=== PATIENT | male | born 1980 | race Caucasian/White ===

== ENCOUNTER 2025-04-08 07:17 | Outpatient (REF) | payer OTHER, SELFPAY ==
--- OUTSIDE RECORDS SUMMARY | 2025-04-08 08:31 | XMS_ITS | Encounter Summary ---
Author Organization [facility] Prior to 02/16/[address] [place] [address] Care Team Providers Care Crm Administrator Name Role Phone Efren Mcwilliams MD Primary Care Provider [phone] Reason for Visit * Reason Onset Date Comments Orders Call 10/27/2022 tdap Encounter Details Date Type Department Care Team Description 10/27/2022 Telephone Adult Medicine - [place] [address] [place], [place] [id number] Efren Mcwilliams MD [address] [place] [address] Orders Call (tdap) Social History Tobacco Use Types Packs/Day Years Used Date Smoking Tobacco: Former Cigarettes 6 Smokeless Tobacco: Never Alcohol Use Standard Drinks/Week Comments Yes 0 (1 standard drink = 0.6 oz pur e alcohol) occ- 1-2x/wk Sex Assigned at Date Recorded Not on file Job Start Date Occupation Industry Not on file Not on file Not on file COVID-19 Exposure Response Date Recorded In the last 10 days, have sveta u been in contact with someone who was confirmed or suspected to have Coronavirus/COVID-19? No / Unsure 10/27/2022 3:04 PM EDT documented as of this encounter Miscellaneous Notes * Telephone Encounter - Faye Joe - 10/27/2022 3:46 PM EDT Patient calling to request labs be ordered: What lab work is patient requesting? tdap Does patient have an upcoming appointment, if yes when and WITH WHO? no Patients PCP is: Efren Mcwilliams documented in this encounter Plan of Treatment Not on file documented as of this encounter Visit Diagnoses Not on filedocumented in this encounter Care Teams Crm Administrator Relationship Specialty Start Date End Date Efren Mcwilliams MD [address] [place] [address] PCP - General Internal Medicine 12/28/20 documented as of this encounter
--- OUTSIDE RECORDS SUMMARY | 2025-04-08 08:31 | XMS_ITS | Encounter Summary ---
Author Organization [facility] Prior to 02/16/[address] [place] [address] Care Team Providers Care Letter Of Credit Document Examiner Name Role Phone Prasanna Forte MD Primary Care Provider Unava Efren Lopez MD Primary Care Provider [phone] Encounter Details Date Type Department Care Team Description 11/14/2018 Heel Scorer Report Medical Records [address] [place] [address] Social History Tobacco Use Types Packs/Day Years Used Date Smoking Tobacco: Former Smokeless Tobacco: Never Sex Assigned at Date Recorded Not on file Job Start Date Occupation Industry Not on file Not on file Not on file documented as of this encounter Plan of Treatment Not on file documented as of this encounter Visit Diagnoses Not on filedocumented in this encounter Care Teams Letter Of Credit Document Examiner Relationship Specialty Start Date End Date Prasanna Forte MD PCP - General Internal Medicine 11/07/18 12/27/20 Efren Mcwilliams MD [address] [place] [address] PCP - General Internal Medicine 12/28/20 documented as of this encounter
--- OUTSIDE RECORDS SUMMARY | 2025-04-08 08:31 | XMS_ITS | Encounter Summary ---
Author Organization [facility] Prior to 02/16/[address] [place] [address] Care Team Providers Care Ophthalmologist Retina Specialist Name Role Phone Efren Mcwilliams MD Primary Care Provider [phone] Encounter Details Date Type Department Care Team Description 04/28/2023 Docketing Specialist Report Medical Records [address] [place] [address] Arielle Mccloud MD Social History Tobacco Use Types Packs/Day Years [...] on filedocumented in this encounter Care Teams Ophthalmologist Retina Specialist Relationship Specialty Start Date End Date Efren Mcwilliams MD [address] [place] [address] PCP - General Internal Medicine 12/28/20 documented as of this encounter
--- OUTSIDE RECORDS SUMMARY | 2025-04-08 08:31 | XMS_ITS | Encounter Summary ---
Author Organization [facility] Prior to 02/16/[address] [place] [address] Care Team Providers Care Senior Energy Market Coordinator Name Role Phone Efren Mcwilliams MD Primary Care Provider [phone] Encounter Details Date Type Department Care Team Description 05/12/2021 Kitchen And Counter Worker Report Medical Records [address] [place] [address] Social History Tobacco Use Types Packs/Day Years [...] on filedocumented in this encounter Care Teams Senior Energy Market Coordinator Relationship Specialty Start Date End Date Efren Mcwilliams MD [address] [place], [place] [phone] PCP - General Internal Medicine 12/28/20 documented as of this encounter
--- OUTSIDE RECORDS SUMMARY | 2025-04-08 08:31 | XMS_ITS | Encounter Summary ---
Author Organization [facility] Prior to 02/16/[address] [place] [address] Care Team Providers Care Senior Energy Trader Name Role Phone Prasanna Forte MD Primary Care Provider Unava Efren Lopez MD Primary Care Provider [phone] Encounter Details Date Type Department Care Team Description 11/08/2018 Release of Information Medical Records [address] [place] [address] Abstract, Provider Social History Tobacco Use Types Packs/Day Years [...] in this encounter Care Teams Senior Energy Trader Relationship Specialty Start Date End Date Prasanna Forte MD PCP - General Internal Medicine 11/07/18 12/27/20 Efren Mcwilliams MD [address] [place] [address] PCP - General Internal Medicine 12/28/20 documented as of this encounter
--- OUTSIDE RECORDS SUMMARY | 2025-04-08 08:31 | XMS_ITS | Encounter Summary ---
Author Organization [facility] Prior to 02/16/[address] [place] [address] Care Team Providers Care Entry Processor Name Role Phone Efren Mcwilliams MD Primary Care Provider [phone] Reason for Referral * Radiology Services (Routine) - Closed Specialty Diagnoses / Procedures Referred By Contac t Referred To Contact Radiology Diagnoses Contusion of right knee, initial encounter Procedures MRI OF LEG JOINT / LOWER EXTREMITY JOINT NO CONTRAST Ronny Saha PA-C [address] [place] [address] Mri/[address] [address] Referral ID Status Reason Start Date Expiration Date Visits Re quested Visits Authorized [id number] Closed 04/02/2021 09/29/2021 1 1 Encounter Details Date Type Department Care Team Description 01/21/2021 Telephone [facility] [address] [place] [address] [phone] Ronny Saha PA-C [address] [place] [address] [phone] Social History Tobacco Use Types Packs/Day Years [...] Exposure Response Date Recorded In the last month, have you been in contact with someone who was confirmed or suspected to have Coronavirus / COVID-19? No / Unsure 01/07/2021 8:15 AM EDT documented as of this encounter Plan of Treatment Not on file documented as of this encounter Results * MRI OF LEG JOINT / LOWER EXTREMITY JOINT NO CONTRAST (04/06/2021 10:13 AM EST) 04/07/2021 10:0 0 AM EST Impressions [facility] OTHER EXTERNAL - 04/07/2021 7:14 PM EST IMPRESSION: Probable tiny tear along the free edge of the medial meniscal body. POS - [id number] Narrative [facility] OTHER EXTERNAL - 04/07/2021 7:14 PM EST EXAM: Right knee MRI HISTORY: Right knee pain. Right knee injury December 2020. COMPARISON: None CORRELATION: Radiography 11/07/2018 TECHNIQUE: Exam performed on a 1.5 Merline high-field MRI scanner. Multiplanar imaging performed without contrast. FINDINGS: Exam mildly limited by varying degrees of motion artifact. Cruciate and collateral ligaments and the extensor mechanism are intact without abnormal signal. No significant joint effusion. No popliteal cyst. Tiny area of blunting and subtle increased signal along the free edge of the medial meniscal body suggestive of a tiny radial type tear. No evidence of a lateral meniscal tear. No cartilage defects. No fracture or definite bone contusion.. No suspicious bone lesion. Procedure Note Holli De La Rosa MD - 04/07/2021 EXAM: Right knee MRI HISTORY: Right knee pain. Right knee injury December 2020. COMPARISON: None CORRELATION: Radiography 11/07/2018 TECHNIQUE: Exam performed on a 1.5 Merline high-field MRI scanner.Multiplanar imaging performed without contrast. FINDINGS: Exam mildly limited by varying degrees of motion artifact. Cruciate and collateral ligaments and the extensor mechanism are intactwithout abnormal signal. No significant joint effusion. No popliteal cyst. Tiny area of blunting and subtle increased signal along the free edge ofthe medial meniscal body suggestive of a tiny radial type tear. No evidence of a lateralmeniscal tear. No cartilage defects. No fracture or definite bone contusion.. No suspicious bone lesion. IMPRESSION IMPRESSION: Probable tiny tear along the free edge of the medial meniscal body. POS - [id number] Ronny Saha PA-C MRI [facility] OTHER EXTERNAL documented in this encounter Visit Diagnoses Diagnosis Contusion of right knee, initial encounter- Primary Contusion of right knee, initial encounter documented in this encounter Care Teams Entry Processor Relationship Specialty Start Date End Date Efren Mcwilliams MD [address] [place] [address] PCP - General Internal Medicine 12/28/20 documented as of this encounter
--- OUTSIDE RECORDS SUMMARY | 2025-04-08 08:31 | XMS_ITS | Clinical Summary ---
Author Organization [facility] Prior to 02/16/[address] [place] [address] Care Team Providers Care Manager Commercial Sales Name Role Phone Efren Mcwilliams MD Primary Care Provider [phone] Allergies No known active allergies Medications Medication Sig Dispensed Refills Start Date End Date Status ALBUTEROL SULFATE 108 (90 Base) MCG/ACT Aero Soln INHALE 2 PUFFS EVERY 4 TO 6 HOURS NEEDED SHORTNESS OF BREATH OR WHEEZING) 0 01/26/2024 Active Active Problems Problem Noted Date Abnormal ultrasound of liver 11/08/2022 Urinary retention 11/08/2022 Elevated blood sugar 10/28/2022 Overview: Mild 11/06 Urinary frequency 10/27/2022 Anxiety 11/26/2018 Immunizations Name Administration Dates Next Due COVID-19 (VIRY) PT REPORTED 10/09 Tdap 11/01/2012 Family History Medical History Relation Name Comments Diabetes Brother 1 Type 2 Diabetes Brother 2 #2 Type 1 Diabetes Father Type 2 Hypertension Mother Leukemia Paternal Grandmother Relation Name Status Comments Brother 1 Brother 2 #2 Alive Father Mother Paternal Grandmother Social History Tobacco Use Types Packs/Day Years Used Date Smoking Tobacco: Former Cigarettes 6 Smokeless Tobacco: Never Tobacco Cessation:Counseling Given: Not Answered Alcohol Use Standard Drinks/Week Comments Yes 0 (1 standard drink = 0.6 oz pur e alcohol) occ- 1-2x/wk Sex Assigned at Date Recorded Not on file Job Start Date Occupation Industry Not on file Not on file Not on file Last Filed Vital Signs Vital Sign Reading Time Taken Comments Blood Pressure 126/62 02/09/2024 1:59 PM EDT Pulse 49 02/09/2024 1:59 PM EDT Temperature 36.5 C (97.7 F) 02/09/2024 1:59 PM EDT Respiratory Rate 16 10/27/2022 3:10 PM EDT Oxygen Saturation 98% 12/29/2020 9:21 AM EDT Inhaled Oxygen Concentration - - Weight 67.4 kg (148 lb 9.6 oz) 02/09/2024 1:59 P M EDT Height 175.3 cm (5' 9 ) 02/09/2024 1:59 PM EDT Body Mass Index 21.94 02/09/2024 1:59 PM EDT Plan of Treatment Health Maintenance Due Date Last Done Comments DTAP/TDAP/TD (2 - Td or Tdap) 11/01/2022 11/01/2012 BASELINE HEALTH EXAM 40-64 10/27/2024 10/27/2022, Covid-19 Vaccine ( season) 2024 INFLUENZA (#1) 2024 CHOLESTEROL SCREENING 10/28/2027 10/27/2022 PNEUMOCOCCAL VACCINE FOR HIG H RISK PATIENTS (#1) 2046 Care Teams Manager Commercial Sales Relationship Specialty Start Date End Date Efren Mcwilliams MD [address] [place], [place] [phone] PCP - General Internal Medicine 12/28/20
--- OUTSIDE RECORDS SUMMARY | 2025-04-08 08:31 | XMS_ITS | Encounter Summary ---
Author Organization [facility] Prior to 02/16/[address] [place] [address] Care Team Providers Care Supplemental Nurse Name Role Phone Prasanna Bales MD Primary Care Provider Efren Wang MD Primary Care Provider [phone] Reason for Referral * EXTERNAL (Urgent) - Authorized/Booked Specialty Diagnoses / Procedures Referred By Kelvin flores Referred To Contact Physical Therapy Procedures REFERRAL TO PHYSICAL THERAPY Prasanna Bales MD [address] [place] [address] External Phys Thrpy Referral ID Status Reason Start Date Expiration Date V isits Requested Visits Authorized SEE NOTE Authorized/B ooked 11/08/2018 02/08/2019 1 1 Reason for Visit * Reason Onset Date Comments Editor Newspaper Feedback 11/08/2018 [facility] Physical The rapy Facility [facility] [phone] Encounter Details Date Type Department Care Team Description 11/08/2018 Telephone Medicine/Pediatrics - [address] [phone] Prasanna Bales MD Editor Newspaper Feedback ([facility] Physical Therapy Facility NP [phone]) Social History Tobacco Use Types Packs/Day Years Used Date Smoking Tobacco: Former Smokeless Tobacco: Never Sex Assigned at Date Recorded Not on file Job Start Date Occupation Industry Not on file Not on file Not on file documented as of this encounter Miscellaneous Notes * Telephone Encounter - Tawanda Steele PA-C - 11/08/2018 12:51 PM EDT All set * Telephone Encounter - Prasanna Bales MD - 11/08/2018 12:13 PM EDT Forwarding to ordering provider who saw patient in clinic * Telephone Encounter - Randi Lopez - 11/08/2018 12:09 PM EDT Please review this patients new referral request. The referral has been pended. Please complete thefollowing: If approved> sign order If denied>please give instructions and route to your practice nursing pool. Practice nurse should inform referrals and the patient if denied. Subscriber: JESSICA CUELLO Submitter : PRASANNA BALES Submitter Type: Provider : 1980 Referral (#[id number]) Specialty Care Review Type: Initial Certification Status : Certified in total Place Of Service : Office Visits : 16 Issue : 11/08/2018 Expiration : 11/09/2019 Service Providers Provider Name ID Provider Type AT PHYSICAL THERAPY [facility] NPI : [id number] Service Provider Service Request Review Status Procedure Details - Professional Service [facility] Code : 41308 Description : UNLISTED EVALUATION AND MANAGEMENT SERVICE Status: Certified in total Review Id # : [id number] * Telephone Encounter - Marilyn Pro - 11/08/2018 11:24 AM EDT What insurance does the patient have today? Payor: [employer] / Plan: PPO $20 [place] [id number] / Product Type: POS [id number] Effective 01/15/09: BC[employer] will not retro referral requests over 90 days. If request is for this please instruct patient to call the 800# on their insurance card to appeal. Do not submit a request. Referrals cannot be processed if the insurance is not accurate. If the insurance listed above in red is NO BILLING INFORMATION FOUND FOR THIS ENCOUTNER The patients correct insurance must be obtained and registered in [facility] or their referral can not be processed. Is this a retro request? NO. If yes for what date of service do you need the retro referral? N/A Who is calling to request this referral? patient If the caller is not the patient, what is their name? N/A Ask the patient WHO referred them to this specialty: Patient self referred FIRST and LAST NAME of SPECIALIST PATIENT is seeing: [facility] Physical Therapy Facility [facility] [phone] What specialty is this? Physical Therapy DIAGNOSIS Patient is being seen for (Not a body part or a procedure): knee pain Have you seen this SPECIALIST for this PROBLEM/DX before?NO If YES, when: Have you checked REVIEW or the APPT DESK to see if this referral has already been done or has visits left? YES Is this visit:Initial Visit Address of Specialist:[address] [place] [address] Phone # of Specialist:[phone] Fax #: (if applicable):[phone] Does patient have an appointment scheduled?: YES Date of appointment- (including a retro-request): 11/14/18 Is this appointment related to: Not MVA, WC or Surgery related documented in this encounter Plan of Treatment Not on file documented as of this encounter Visit Diagnoses Not on filedocumented in this encounter Care Teams Supplemental Nurse Relationship Specialty Start Date End Date Prasanna Bales MD PCP - General Internal Medicine 11/07/18 12/27/20 Efren Mcwilliams MD [address] [place] [address] PCP - General Internal Medicine 12/28/20 documented as of this encounter
[2025-04-08 10:09] LABS: Folate 10.2 ng/mL (> or = 4.0); Vitamin B12 465 pg/mL (200-900)
== END 2025-04-08 07:18 ==
LOC: HO.LAB 07:17
PROVIDERS: PCP Pediatrics; Visit Provider Nurse Practitioner
DX: R20.2 Paresthesia of skin (principal); R26.89 Other abnormalities of gait and mobility; R35.0 Frequency of micturition; K59.00 Constipation, unspecified; Z13.1 Encounter for screening for diabetes mellitus
CPT/HCPCS: 36415; 82525; 82607; 82746; 83036; 83921; 84443; 86235

== ENCOUNTER 2025-04-08 07:17 | Outpatient (AMB) | payer OTHER, SELFPAY ==
--- OUTSIDE RECORDS SUMMARY | 2025-04-08 07:22 | XMS_ITS | Clinical Summary ---
Author Organization [facility] Address [address] [place] [phone] Phone Care Team Providers Care Power Equipment Technology Instructor Name Role Phone Mahogany Mcwilliams MD Primary Care Provider [phone] Allergies No known active allergies Medications No known medications Encounters Date Type Department Care Team Description 01/20/2025 5:00 PM EDT Office Visit [facility] [address] [place] [address] Arielle Mccloud MD Jarjoura, Shoaib Escalante, PT Chronic pain of right knee (Primary Dx) from Last 3 Months Social History Tobacco Use Types Packs/Day Years Used Date Smoking Tobacco: Former Education Answer Date Recorded Are you interested in more education? Not on oni e 08/13/2022 Are you concerned about learning? Not on file 08/13/2022 No 08/13/2022 No 08/13/2022 Digital Access Answer Date Recorded No 09/11/2022 No 09/11/2022 Reliable internet access at home? Not on file 09/11/2022 Device with a working camera? Not on file Sex and Gender Information Value Date Recorded Sex Assigned at Not on file Legal Sex Male 11:23 AM EST Gender Identity Not on file Sexual Orientation Not on file Last Filed Vital Signs Vital Sign Reading Time Taken Comments Blood Pressure - - Pulse - - Temperature - - Respiratory Rate - - Oxygen Saturation - - Inhaled Oxygen Concentration - - Weight 68 kg (150 lb) 07/30/2021 1:23 PM EDT Height 175.3 cm (5' 9 ) 07/30/2021 1:23 PM EDT Body Mass Index 22.15 07/30/2021 1:23 PM EDT Plan of Treatment Health Maintenance Due Date Last Done Comments DEPRESSION SCREENING 1993 SMOKING Hx and SMOKELESS TOBACCO SCREENING 1994 HEPATITIS C SCREENING 06/21/1999 HIV ONE-TIME SCREENING (18-6 5 YEARS) 06/21/1999 Adult Td,Tdap Booster 11/01/2022 11/01/2012 INFLUENZA VACCINE (#1) 2024 7, 07/29/2015 COVID-19 VACCINE (3 - 2024-2 6 season) 2024 04/16/2021, 10/09/2020 LIPID PANEL 10/28/2027 10/27/2022 HEPATITIS A VACCINES Aged Out No long er eligible based on patient's age to complete this topic HIB VACCINES Aged Out No longer eligi ble based on patient's age to complete this topic MENINGOCOCCAL VACCINES (ACWY) Aged Out No longer eligible based on patient's age to complete this topic MENINGOCOCCAL VACCINES (B) Aged Out N o longer eligible based on patient's age to complete this topic PNEUMOCOCCAL VACCINES (0-49 years) Aged Out No longer eligible b ased on patient's age to complete this topic Medical Devices Not [place] [id number] [facility] Care Teams Power Equipment Technology Instructor Relationship Specialty Start Date End Date Mahogany Mcwilliams MD [address] [place] [phone] PCP - General Internal Medicine 04/28/23 Additional Source Comments The information contained in this document represents components of the legal health record. It is not the complete legal health record.[facility]
--- OUTSIDE RECORDS SUMMARY | 2025-04-08 07:22 | XMS_ITS | Encounter Summary ---
Author Organization [facility] Address [address] [place] [address] Care Team Providers Care Conventions Assistant Name Role Phone Mahogany Mcwilliams MD Primary Care Provider [phone] Reason for Referral * Consultation (Routine) - Closed Specialty Diagnoses / Procedures Referred By Contac t Referred To Contact Rheumatology Diagnoses Elevated rheumatoid factor Rheumatoid arthritis involving multiple sites with positive rheumatoid factor (CMS/HCC V24, CMS/HCC V28) Becky Girard NP [address] [place], [place] Phone: tel: fax: [facility] - Rheumatology [address] [place] [address] Phone: tel: fax: Referral ID Status Reason Start Date Expiration Date V isits Requested Visits Authorized [id number] Closed Specialty Services Required 02/18/2025 02/18/2026 1 1 Encounter Details Date Type Department Care Team (Late st Contact Info) Description 02/18/2025 Results Follow-Up Adult Medicine - [place] [address] [place] [id number] Becky Girard NP [address] [place], [place] Social History Tobacco Use Types Packs/Day Years Used Date Smoking Tobacco: Former Cigarettes 0 Q uit: 2007 Smokeless Tobacco: Never Alcohol Use Standard Drinks/Week Comments Yes 0 (1 standard drink = 0.6 oz pur e alcohol) social Sex and Gender Information Value Date Recorded Sex Assigned at Not on file Legal Sex Male 10:25 AM EST Gender Identity Not on file Sexual Orientation Not on file documented as of this encounter Plan of Treatment Scheduled Referrals Name Type Priority Associated Diagnoses Order Schedule Ambulatory referral to Rheumatology Outpatient Referral Routine Elevated rheumatoid factor Rheumatoid arthritis involving multiple sites with positive rheumatoid factor ([facility] V24, [facility] V28) 1 Occurrences starting 02/18/2025 until 02/18/2026 documented as of this encounter Visit Diagnoses Diagnosis Elevated rheumatoid factor- Primary Other and unspecified nonspecific immunological findings Rheumatoid arthritis involving multiple sites with positive rheumatoid factor ([facility] V24, [facility] V28) documented in this encounter Care Teams Conventions Assistant Relationship Specialty Start Date End Date Mahogany Mcwilliams MD [address] [place] [phone] PCP - General Internal Medicine 12/28/20 documented as of this encounter
--- OUTSIDE RECORDS SUMMARY | 2025-04-08 07:22 | XMS_ITS | Clinical Summary ---
Author Organization [facility] [address] [facility] Address [address] [place] [address] Phone Care Team Providers Care Flux Tube Attendant Name Role Phone Mahogany cMwilliams MD Primary Care Provider [phone] Allergies No known active allergies Medications albuterol HFA (PROAIR HFA ; PROVENTIL HFA ; VENTOLIN HFA) 90 mcg/actuation inhaler if needed. 01/26/2024 Active Active Problems Problem Noted Date Diagnosed Date History of tobacco use 03/28/2024 Overview (03/28/2024): Only briefly in 20s Lung nodules 03/28/2024 Overview (03/28/2024): 04/09. Low risk. No follow up needed Abnormal ultrasound of liver 11/08/2022 Urinary retention 11/08/2022 Elevated blood sugar 10/28/2022 Overview (05/20/2024): Mild 11/06 Urinary frequency 10/27/2022 Anxiety 11/26/2018 Encounters Date Type Department Care Team Description 03/07/2025 1:30 PM EST Ancillary Procedure [facility] - [facility] [address] [facility] [address] [place] [phone] Chest pain, unspecified type 03/06/2025 11:00 AM EST Office Visit Adult Medicine [facility] [address] [place] [address] Mahogany Mcwilliams MD Constipation, unspecified constipation type (Primary Dx) 03/06/2025 Telephone Adult [facility] - [address] [phone] Mahogany Mcwilliams MD 02/21/2025 8:00 AM EST Ancillary Procedure [facility] - [address] [place] [phone] Chest pain, unspecified type 02/18/2025 Results Follow-Up Adult [facility] - [address] [address] Becky Girard NP 02/13/2025 3:40 PM EDT Lab Draw Station - [address] [address] Generalized joint pain 02/13/2025 3:00 PM EDT Office Visit Adult [address] [phone] Becky Girard PIPELINE TECHNICIAN Chest pain, unspecified type (Primary Dx); Generalized joint pain 02/04/2025 Telephone Adult [address] [address] Mahogany Mcwilliams MD from Last 3 Months Immunizations Immunization Administration Dates Next Due Tdap Tetanus diptheria acell ular pertussis (Boostrix; Adacel) 7yo and older 11/01/2012 Surgical History Surgery Date Site/Laterality Comments ABDOMINAL SURGERY PROCEDURE: HISTORICAL ABDOMINAL SURGERY; COMMENT: age 4, intussuception Medical History Medical History Date Comments Anxiety 11/26/2018 DX:Anxiety History of dizziness 11/26/2018 DX:History of dizziness Family History Medical History Relation Name Comments Diabetes Brother 1 Type 2 Diabetes Brother 2 #2 Type 1 Diabetes Father Type 2 Hypertension Mother Leukemia Paternal Grandmother Relation Name Status Comments Brother 1 Brother 2 #2 Alive Father Mother Paternal Grandmother Social History Tobacco Use Types Packs/Day Years Used Date Smoking Tobacco: Former Cigarettes 0 Q uit: 2006 Smokeless Tobacco: Never Tobacco Cessation:Counseling Given: Not Answered Alcohol Use Standard Drinks/Week Comments Yes 0 (1 standard drink = 0.6 oz pur e alcohol) social Sex and Gender Information Value Date Recorded Sex Assigned at Not on file Legal Sex Male 10:25 AM EST Gender Identity Not on file Sexual Orientation Not on file Last Filed Vital Signs Vital Sign Reading Time Taken Comments Blood Pressure 136/80 03/06/2025 11:01 AM EST Pulse 50 03/06/2025 11:01 AM EST Temperature 36.6 C (97.9 F) 03/06/2025 11:01 AM EST Respiratory Rate - - Oxygen Saturation - - Inhaled Oxygen Concentration - - Weight 65 kg (143 lb 3.2 oz) 03/06/2025 11:01 AM EST Height 175.3 cm (5' 9 ) 03/06/2025 11:01 AM EST Body Mass Index 21.15 03/06/2025 11:01 AM EST Plan of Treatment Health Maintenance Due Date Last Done Comments Hepatitis B Vaccines (1 of 3 - 19+ 3-dose series) 2000 HPV Vaccines (1 - 3-dose SCD M series) 2008 HIV Screening 03/27/2022 Hepatitis C Screening 03/27/2022 Social Influencers of Health Screening 03/27/2022 DTaP,Tdap,and Td Vaccines (2 - Td or Tdap) 11/01/2022 11/01/2012 Depression Screening 04/17/2024 COVID-19 Vaccine (3 - 2024-2 6 season) 2024 04/16/2021, 10/09/2020 Influenza Vaccine (#1) 2024 7, 07/29/2015 Cholesterol Screening (Lipid Panel) 10/28/2027 10/27/2022 RSV Immunization Adult Patients (1 - 1-dose 75+ series) 2056 HIB Vaccines Aged Out No longer eligi ble based on patient's age to complete this topic Hepatitis A Vaccines Aged Out No long er eligible based on patient's age to complete this topic IPV Vaccines Aged Out No longer eligi ble based on patient's age to complete this topic MMR Vaccines Aged Out No longer eligi ble based on patient's age to complete this topic Meningococcal ACWY Vaccine Aged Out N o longer eligible based on patient's age to complete this topic Meningococcal B Vaccine Aged Out No l onger eligible based on patient's age to complete this topic Pneumococcal Vaccine: Pediatrics (0 to 5 Years) and At-Risk Patients (6 to 49 Years) Aged Out No longer eligible b ased on patient's age to complete this topic RSV Immunization Patients Under 20 months Aged Out No longer eligible b ased on patient's age to complete this topic Varicella Vaccines Aged Out No longer eligible based on patient's age to complete this topic Procedures Procedure Name Priority Date/Time Associated Diagnosis Comments EXTERNAL ULTRASOUND REPORT 03/15/2025 STRESS ECHOCARDIOGRAM EXERCISE Routine 03/07/2025 2:07 PM EST Chest pain, unspecified type TRANSTHORACIC ECHOCARDIOGRAM (TTE) COMPLETE Routine 02/21/2025 8:24 AM EST Chest pain, unspecified type SEDIMENTATION RATE Routine 02/13/2025 3: 36 PM EDT Generalized joint pain ANN IFA WITH TITER AND PATTERN Routine 02/13/2025 3:36 PM EDT Generalized joint pain BORRELIA BURGDORFERI ANTIBODY Routine 02/13/2025 3:36 PM EDT Generalized joint pain URIC ACID Routine 02/13/2025 3:36 PM EDT Generalized joint pain RHEUMATOID FACTOR Routine 02/13/2025 3:3 6 PM EDT Generalized joint pain LIPID PANEL Routine 10/27/2022 from Last 3 Months or Most Recently Relevant to Health Maintenance Results * External Ultrasound Report (03/15/2025) Anatomical Region Laterality Modality Ultrasound us Provider [facility] IMG US PROCEDURES Final Result * STRESS ECHOCARDIOGRAM EXERCISE (03/07/2025 2:07 PM EST) Exercise/inject ion duration (min) 17 CV PACS STRESS Exercise/inject ion duration (sec) 39 CV PACS STRESS Peak SBP 166 mmHg CV PACS STRESS Peak DBP 90 mmHg CV PACS STRESS Peak HR 179 bpm CV PACS STRESS Baseline HR 59 bpm CV PACS STRESS Baseline SBP 122 mmHg CV PACS STRESS Baseline DBP 80 mmHg CV PACS STRESS Estimated workload 20.3 METS CV PACS STRESS Percent HR 101 % CV PACS STRESS Rate Pressure Product 29,714.0 mmHg*bpm CV PACS STRESS Target HR 150 bpm CV PACS STRESS Angina Index 0 CV PACS STRESS Max HR Percent 101 % CV PA CS STRESS ST Depression (mm) 0 mm CV PACS STRESS O2 sat rest 99 % CV PACS STRESS O2 sat peak 99 % CV PACS STRESS Anatomical Region Laterality Modality Ultrasound 03/07/2025 1:24 PM EST 03/07/2025 2:14 PM EST Narrative 03/10/2025 12:10 PM EST Resting echo showed normal biventricular size and systolic function. Normal left ventricular regional wall motion with an ejection fraction of 55 to 60%. Exercise stress test was performed. The patient exercised for 17 minutes and 39 seconds! He achieved 101% of max predicted heart rate and a 20.3 MET workload. Patient's exercise capacity is excellent! Patient reported no symptoms during the stress test. Normal blood pressure and heart rate response. There were no ischemic ECG changes or arrhythmias with stress. Post stress echocardiographic imaging showed normal augmentation of all regional wall segments. The left ventricular cavity did not dilate with stress. Normal exercise stress echocardiogram at a diagnostic heart rate and excellent workload without evidence of ischemia or infarction. Left Ventricle Left ventricle cavity size is normal. Wall thickness is normal. Systolic function is normal with an ejection fraction of 55-60%. There are no regional LV wall motion abnormalities. Study Details Overall the study quality was adequate. Stress Findings A Hank protocol stress test was performed. Total stress time was 17 min and 39 sec. The patient experienced no angina during the test. Reached 100% MPHR The patient's hemodynamic response was adequate for diagnosis. Blood pressure demonstrated a normal response. Heart rate demonstrated a normal response. The patient reported no symptoms during the stress test. ECG Mr. Cuello is a 44 year old male with past medical history of anxiety, past history of tobacco use and elevated blood sugar who presents for a stress echocardiogram to evaluate noncardiac chest pain. Baseline ECG: sinus bradycardia at 51bmp. There were no arrhythmias during stress. There is no ST segment changes during stress. There were no arrhythmias during recovery. The result of the stress ECG was negative for ischemia. Echo Post Stress Left ventricular cavity size decreased from baseline. Left ventricular systolic function improved from baseline. Normal wall motion, unchanged from baseline. Nuclear Measurements The study is negative and shows no echocardiographic evidence of ischemia. Procedure Note Len Bradshaw NP / Marjan Nunes MD - 03/10/2025 Resting echo showed normal biventricular size and systolic function.Normal left ventricular regional wall motion with an ejection fraction of55 to 60%. Exercise stress test was performed. The patient exercised for 17minutes and 39 seconds! He achieved 101% of max predicted heart rate calvin 20.3 MET workload. Patient's exercise capacity is excellent! Patientreported no symptoms during the stress test. Normal blood pressure andheart rate response. There were no ischemic ECG changes or arrhythmias with stress. Post stress echocardiographic imaging showed normal augmentation of allregional wall segments. The left ventricular cavity did not dilate withstress. Normal exercise stress echocardiogram at a diagnostic heart rate andexcellent workload without evidence of ischemia or infarction. us Becky Girard NP CV ECHO PROCEDURES Final Resul t * TRANSTHORACIC ECHOCARDIOGRAM (TTE) COMPLETE (02/21/2025 8:24 AM EST) Left Atrium Minor Bramwell 5.1 cm CV PACS Left Atrium Major Bramwell 5.9 cm CV PACS LA Area Sys (A2C) 19 cm2 CV PACS LA Area Sys (A4C) 26 cm2 CV PACS LA Volume (BP) 73 mL CV PACS RA Area 15.5 cm2 CV PACS RA 2D Volume 37 mL CV PACS Aortic Sinus Valsalva 3.0 cm CV PACS Ascending Aorta 3.1 cm CV PACS IVC Proximal 2.0 cm CV PACS IVC Proximal 1.9 cm CV PACS IVSD 0.8 0.6 - 1.0 cm CV PACS LVIDD 5.3 4.2 - 5.8 cm CV PACS LVIDS 3.1 2.5 - 4.0 cm CV PACS LVOT Diameter 2.3 cm CV PACS LVOT Mean Hi 0.7 m/s CV PACS LVOT Mean Grad 3 mmHg CV PACS LVOT Peak VTI 26.8 cm CV PACS LVOT Peak Hi 1.2 m/s CV PACS LVOT Peak Gradient 6 mmHg CV PACS LVPWD 0.8 0.6 - 1.0 cm CV PACS MV E' Tissue Velocity Lateral 20 cm/s CV PACS MV E' Tissue Velocity Septal 13 cm/s CV PACS LVOT Area 4.2 cm2 CV PACS LVOT Stroke Volume 111 mL CV PACS E Wave Deceleration Time 211 119 - 242 ms CV PACS MV Peak A Hi 0.33 m/s CV PACS MV Peak E Hi 0.85 m/s CV PACS PV Acceleration Time 180 ms CV PACS PV Acceleration Time 134 ms CV PACS PV Acceleration Time 157 ms CV PACS RV Diastolic Basal Dimension 3.5 2.5 - 4.1 cm CV PACS RV S' 14 cm/s CV PACS TAPSE 27 mm CV PACS TR Peak Velocity 2.00 m/s CV PACS TR Peak Gradient 16 mmHg CV PACS E/E' Ratio Septal 7 CV PACS E/E' Ratio Averaged 5 CV PACS Relative Wall Thickness ratio 0.30 CV PACS FS 42 % CV PACS LV Mass 2D 150 g CV PACS LVOT flow 291 mL/s CV PACS E/A Ratio 2.6 CV PACS E/E' Ratio Lateral 4 CV PACS BSA 1.79 m2 CV PACS LA Volume Index (BP) 41 mL/m2 CV PACS LVIDD Index 2.94 cm/m2 CV PACS LVIDS Index 1.72 cm/m2 CV PACS LV Mass Index 2D 83 50 - 102 g/m2 CV PACS LVOT Stroke Index 62 mL/m2 CV PACS RA 2D Volume Index 21 18 - 32 mL/m2 CV PACS Ascending Aorta Index 1.72 cm/m2 CV PACS Right Ventricular Peak Systolic Pressure 24 mmHg CV PACS Est. RA Pressure 8 mmHg CV PACS Anatomical Region Laterality Modality Ultrasound Narrative 02/24/2025 4:32 PM EST Left ventricle cavity size is normal. Left ventricular systolic function is in the normal range with an ejection fraction of 60-65%. Normal diastolic function. Normal wall thickness. No wall motion abnormalities. Normal global longitudinal strain at -26.8% Right ventricle cavity is normal. Right ventricular systolic function is normal. Mildly dilated left atrium. Mildly dilated inferior vena cava suggesting a mildly elevated CVP. Trace TR. Normal estimated peak PA systolic pressure. Trace MR. No other significant valvular abnormality. No prior echo for comparison. Left Ventricle Left ventricle cavity size is normal. Wall thickness is normal. Systolic function is normal with an ejection fraction of 60-65%. Global longitudinal strain is normal at -26.8% There are no regional LV wall motion abnormalities. There is no diastolic dysfunction. Right Ventricle Right ventricle cavity appears normal. Systolic function is normal. Left Atrium Left atrium cavity is moderately dilated. Right Atrium Right atrium cavity is normal. IVC/SVC Inferior vena cava structure is normal. RA pressures is estimated to be 8 mmHg (IVC diameter <21 mm and decreases <50% during inspiration). Mitral Valve The valve is myxomatous. There is mild annular calcification. There is trace regurgitation. There is no significant stenosis noted. Tricuspid Valve Tricuspid valve structure is normal. There is mild regurgitation with a central jet. There is no significant tricuspid valve stenosis. Aortic Valve The aortic valve is trileaflet. The leaflets are mildly thickened and exhibit normal excursion. There is no regurgitation or stenosis. Pulmonic Valve The pulmonic valve was not well visualized. No significant pulmonic valve regurgitation. No significant pulmonary valve stenosis noted. Ascending Aorta The aorta appears normal in size. Pericardium Pericardium appears normal. There is no pericardial effusion. Study Details Overall the study quality was adequate. us Becky Girard NP CV ECHO PROCEDURES Final Resul t * ANN IFA with titer and pattern (02/13/2025 3:36 PM EDT) ANN Negative Negative 02/17/2025 2:47 PM EST [facility] Comment:ANN performed by ind sherleyct immunofluorescence (IFA) using HEp-2 substrate. Blood Venous blood specimen / Unknown Venipuncture / Unknown 02/13/2025 3:36 PM EDT 02/13/2025 3:38 PM EDT us Becky Girard NP LAB BLOOD ORDERABLES Final Res ult [facility] [address] [place] [address], [place] [phone] * Borrelia burgdorferi antibody (02/13/2025 3:36 PM EDT) [facility] Lyme Ab Negative Negative LAB CHEMISTRY METHOD 02/14/2025 9:16 AM EDT [facility] Comment: No laboratory evidence of infection with B. burgdorferi (Lyme disease). Negative results may occur in patients recently infected (<=14 days) with B. burgdorferi. If recent infection is suspected, repeat testing on a new sample collected in 7- 14 days is recommended. Blood Venous blood specimen / Unknown Venipuncture / Unknown 02/13/2025 3:36 PM EDT 02/13/2025 3:38 PM EDT Becky Girard PIPELINE TECHNICIAN LAB BLOOD ORDERABLES Final Res ult Performing Organization Address [facility]/ZIP Co de Phone Number [facility] [address] [place] [address], [place] [phone] * Sedimentation rate (02/13/2025 3:36 PM EDT) [facility] Sed Rate 4 0 - 15 mm/hr LAB HEMETOLOGY METHOD 02/13/2025 5:52 PM EDT [facility] Blood Venous blood specimen / Unknown Venipuncture / Unknown 02/13/2025 3:36 PM EDT 02/13/2025 3:38 PM EDT [facility] PIPELINE TECHNIC[facility] LAB BLOOD ORDERABLES Final Res ult Performing Organization Address City/[facility]/ZIP Co de Phone Number [facility] [address] [place] [address], [place] [phone] * (ABNORMAL) Rheumatoid factor (02/13/2025 3:36 PM EDT) [facility] Rheumatoid Factor 23.0(H) <15.0 I Unit/mL LAB CHEMISTRY METHOD 02/13/2025 6:04 PM EDT [facility] Blood Venous blood specimen / Unknown Venipuncture / Unknown 02/13/2025 3:36 PM EDT 02/13/2025 3:38 PM EDT [facility] PIPELINE TECHNICIAN LAB BLOOD ORDERABLES Final Res ult Performing Organization Address City/[facility]/ZIP Co de Phone Number [facility] [address] [place] [address], [place] [phone] * (ABNORMAL) Uric acid (02/13/2025 3:36 PM EDT) Pathologist [facility] Uric Acid 3.6(L) 3.7 - 9.2 mg/dL LAB CHEMISTRY METHOD 02/13/2025 6:04 PM EDT [facility] Blood Venous blood specimen / Unknown Venipuncture / Unknown 02/13/2025 3:36 PM EDT 02/13/2025 3:38 PM EDT [facility] PIPELINE TECHNICIAN LAB BLOOD ORDERABLES Final Res ult Performing Organization Address [facility]/ZIP Co de Phone Number [facility] [address] [place] [address], [place] [phone] * Lipid panel (10/27/2022) LDL/HDL Ratio 3 0 - 4 Triglycerides 127 0 - 150 mg/dL Cholesterol 176 0 - 200 mg/dL HDL 58 >=40 mg/dL LDL Cholesterol 93 0 - 100 mg/dL Blood Venous blood specimen / Unknown Historical Provider LAB BLOOD ORDERABLES Cathie l Result from Last 3 Months or Most Recently Relevant to Health [place] [phone] [facility] Care Teams Flux Tube Attendant Relationship Specialty Start Date End Date Mahogany Mcwilliams MD [address] [place] [phone] PCP - General Internal Medicine 12/28/20
--- NOTE | 2025-04-08 07:28 | MHC.OFFVIS ---
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 According to the patient today, over the course of the last 7-8 years he has had intermittent symptoms including feelings o being off balance (as if he is on a boat). Over the last couple years he feels as though his bladder and bowel patterns have changed with bowel patterns slowing or lack of urge and urinary frequency, feeling of tingling on legs or toes, intermittent blurred vision, as well as a feeling of tightness around his chest as if a belt is wrapped around his chest. Over the last couple of months has had a pain in his throat that makes it uncomfortable to swallow. He has not had difficulty chewing or with speech. He notes 1 episode in 2019 that felt as an electrical shock in his body and chest pain. He was seen in the ER for this in the past but his workup was unrevealing. He has tried vestibular PT in the past for his symptoms of imbalance which was ineffective. In 2019 regular exercise had been helpful for the feelings of imbalance. Social/backround: Lives home with and 2 kids He works as a repairman for medical equipment Sleep: Reports about 7 hours of sleep per night. He generally feels rested in the morning. Tobacco: None Etoh: Socially but has stopped recently Substance use: None Prior workup: Labs: ANN negative, lyme negative. Rheumatoid factor elevated. REPLACED BY [facility] Medical History (Updated 04/08/25 @ 08:08 by Coco Reno CNP) Imbalance Numbness and tingling Difficulty swallowing Blurry vision Elevated blood sugar Lung nodules Anxiety Nonintractable headache Family History (Updated 04/07/25 @ 08:14 by Pamela Rojo [facility]) Father Diabetes mellitus Brother Diabetes mellitus Brother Diabetes mellitus Mother Hypertension Paternal Grandmother Leukemia Social History (Updated 04/07/25 @ 08:15 by Pamela Rojo CMA) Alcohol intake: current Comment: Social Patient Tobacco Use Status: Former Tobacco user Tobacco use type: Cigarette e-Cigarette/Vaping Use: Never Used Review of Systems Const All systems reviewed & are unremarkable except as noted in HPI and below Physical Exam Vital Signs: Last Vital Signs Pulse 49 L 04/08/25 07:37 Resp 16 04/08/25 07:37 BP 132/78 04/08/25 07:37 Pulse Ox 98 04/08/25 07:37 Oxygen Delivery Method Room Air 04/08/25 07:37 BMI result Body Mass Index 21.4 Const General: cooperative, healthy appearing, comfortable and no acute distress Nutritional Appearance: well nourished Orientation/consciousness: patient oriented x3 Limitations: no limitations HEENT Head: Yes normal to inspection and Yes normocephalic Eyes General: appearance normal, both eyes and all related structures Visual Mercer: normal visual mercer by confrontation Alignment and Position: alignment normal Periorbital: periorbital findings normal Eyelids: Yes eyelids normal Conjunctivae: conjunctivae normal Sclerae: sclerae normal Direct Ophthalmoscopy: normal light reflex, no papilledema and fundi normal bilaterally Neck Neck: Yes normal visual inspection and Yes full ROM General: Yes no CVA tenderness Back/Spine/Pelvis Back: no CVA tenderness Cervical Spine: normal cervical lordosis Thoracic/Lumbar Spine: thoracic and lumbar spine normal to inspection Neuro General: patient oriented x3, tone normal and deep tendon reflexes 2+ bilaterally Cranial nerves: Yes CN's II-XII intact bilaterally and Yes Facial sensation intact/muscles of mastication intact Cognition (Neuro): normal cognition Gait exam (Neuro): Normal gait present Motor exam (neuro): 5/5 motor strength present throughout and no tremor noted Sensory Exam: double simultaneous stimulation for sensation normal Romberg Test: Negative Pupils: Normal pupillary reactivity/response: bilateral Psych Appearance: grossly normal Mental Status: mental status grossly normal Speech and movement: Normal speech and movement present and Clear speech present Affect: normal affect Attitude: cooperative Thought process: Normal thought process present Thought content: Normal thought content present Insight: Good insight present (Psych) Judgement: Good judgement present (Psych) Assessment & Plan Assessment & Plan (1) Paresthesias: Code(s): R20.2 - Paresthesia of skin Category: Medical (2) Imbalance: Code(s): R26.89 - Other abnormalities of gait and mobility Category: Medical (3) Urinary frequency: Code(s): R35.0 - Frequency of micturition Category: Medical (4) Constipation: Code(s): K59.00 - Constipation, unspecified Category: Medical Plan Talat is a 44-year-old male patient with a past medical history tobacco use, lung nodules, urinary retention, urinary frequency, elevated blood sugars, and anxiety who is here today upon referral for several symptoms including feelings of off-balance, change to bladder and bowel patterns, paresthesias to his legs, and feeling of tight band around his chest. His detailed exam today was normal. Because of the symptoms, I would think it would be reasonable to perform an MRI of the brain to rule out demyelinating disease. I will also order labs to evaluate for things such as metabolic disturbances or vitamin deficiencies that could contribute to his symptoms. He tells me that he is very claustrophobic and would like an open MRI. I will place the order for [facility] in [place]. -MRI of the brain with and without contrast (open MRI requested) -labs as outlined below -follow up after testing Orders: Orders Copper, serum Today K59.00 - Constipation, unspecified, R20.2 - Paresthesia of skin, R26.89 - Other abnormalities of gait and mobility, R35.0 - Frequency of micturition Methylmalonic Acid Today K59.00 - Constipation, unspecified, R20.2 - Paresthesia of skin, R26.89 - Other abnormalities of gait and mobility, R35.0 - Frequency of micturition Hemoglobin A1c Today K59.00 - Constipation, unspecified, R20.2 - Paresthesia of skin, R26.89 - Other abnormalities of gait and mobility, R35.0 - Frequency of micturition TSH reflex Free T4 Today K59.00 - Constipation, unspecified, R20.2 - Paresthesia of skin, R26.89 - Other abnormalities of gait and mobility, R35.0 - Frequency of micturition Vitamin B12 Today K59.00 - Constipation, unspecified, R20.2 - Paresthesia of skin, R26.89 - Other abnormalities of gait and mobility, R35.0 - Frequency of micturition Sjogren's Antibodies Today K59.00 - Constipation, unspecified, R20.2 - Paresthesia of skin, R26.89 - Other abnormalities of gait and mobility, R35.0 - Frequency of micturition Folate Today K59.00 - Constipation, unspecified, R20.2 - Paresthesia of skin, R26.89 - Other abnormalities of gait and mobility, R35.0 - Frequency of micturition MR head/brain wo/w con Today R20.2 - Paresthesia of skin, R26.89 - Other abnormalities of gait and mobility, R35.0 - Frequency of micturition Coding Level of Care Code New Pt Level 4 (41201) Diagnoses Paresthesias R20.2 Imbalance R26.89 Urinary frequency R35.0 Constipation K59.00
[2025-04-08 07:37] VITALS: BP 132/78; PULSE 49; RESP 16; O2SAT 98; BMI 21.4
== END 2025-04-08 08:07 | disposition home or self-care (01) ==
PROVIDERS: PCP Pediatrics; Visit Provider Nurse Practitioner
DX: R20.2 Paresthesia of skin (principal); R26.89 Other abnormalities of gait and mobility; R35.0 Frequency of micturition; K59.00 Constipation, unspecified
CPT/HCPCS: 99204